=== PATIENT | male | born 2000 | race Caucasian/White ===

== ENCOUNTER 2024-11-25 16:59 | Emergency (ER) | payer OTHER, SELFPAY ==
[2024-11-25 17:15] VITALS: BP 161/100; PULSE 95; RESP 16; TEMP 36.3; O2SAT 99
--- NOTE | 2024-11-25 17:27 | ED.URI ---
HPI - URI/Sore Throat General Chief Complaint: Upper Respiratory Infection Stated Complaint: flu test for work, work note Time Seen by Provider: 11/25/24 17:27 Source: patient Mode of arrival: ambulatory Limitations: no limitations History of Present Illness HPI Narrative: 24-year-old male presents for work note. Patient states that he had the flu and was sick for several days. Had to call into work. States all symptoms have resolved. All Systems reviewed and negative except as noted above. Related Data Home Medications ?Medication ?Instructions ?Recorded ?Confirmed ?Last Taken ?Type bupropion HCl 100 mg tablet 100 mg PO BID 11/25/24 11/25/24 Unknown History buspirone 15 mg tablet 15 mg PO BID 11/25/24 11/25/24 Unknown History fluoxetine 60 mg tablet 60 mg PO DAILY 11/25/24 11/25/24 Unknown History Allergies Allergy/AdvReac Type Severity Reaction Status Date / Time latex Allergy Unknown Unknown Verified 11/25/24 17:06 No Known Drug Allergies Allergy Unknown Unknown Verified 11/25/24 17:06 Common Ragweed Allergy Mild Unknown Uncoded 11/25/24 17:06 Cultivated Oat Pollen Allergy Mild Unknown Uncoded 11/25/24 17:06 Review of Systems Review of Systems: CONSTITUTIONAL: Denies fever, chills, or sweats. EYES: Denies visual changes, redness, or discharge. ENT: Denies rhinorrhea, congestion, sore throat, or otalgia. CARDIOVASCULAR: Denies chest pain, palpitations, or edema. RESPIRATORY: Denies cough or dyspnea. GASTROINTESTINAL: Denies abdominal pain, nausea, vomiting, or diarrhea. GENITOURINARY: Denies dysuria or hematuria. SKIN: Denies rash or itching. MUSCULOSKELETAL: Denies back pain, joint pain, or myalgia. NEUROLOGIC: Denies headache, numbness, or weakness. PSYCHIATRIC: Denies anxiety or depression. All other systems reviewed are negative, except as documented in HPI. PMFSH Comments At time of signature, agree with nursing past medical, surgical, social and family history. There is no relevant family history pertinent to the presenting complaint. Exam Narrative: GENERAL: This is a well-nourished, well-developed patient, in no apparent distress. HEAD: normocephalic, atraumatic. EYES: PERRL. Sclera clear/white. Vision is grossly intact. EARS: External ears normal, auditory canals clear and without drainage, TMs normal without perforation. Hearing grossly intact. NOSE: External nose normal with no obvious nasal discharge, nares without redness, no rhinorrhea. THROAT: Mucous membranes moist, posterior pharynx clear. NECK: Neck supple, non-tender without lymphadenopathy, masses or thyromegaly. CARDIOVASCULAR: Regular rate and rhythm without murmurs, gallops, or rubs. RESPIRATORY: Clear to auscultation. Breath sounds equal bilaterally. No wheezes, rales, or rhonchi. SKIN: warm, Dry, intact with no suspicious lesions or rash, good texture and turgor. NEURO: awake, alert, and oriented to person, place and time. There were no obvious focal neurologic abnormalities. EXTREMITIES: No joint tenderness, effusion, or edema noted. Course Course Level of Care: Express Care Visit Vital Signs Vital signs: Vital Signs Temperature 36.3 C L 11/25/24 17:15 Pulse Rate 95 11/25/24 17:15 Respiratory Rate 16 11/25/24 17:15 Blood Pressure 161/100 H 11/25/24 17:15 Pulse Oximetry 99 11/25/24 17:15 Oxygen Delivery Room Air 11/25/24 17:15 Temperature 36.3 C L 11/25/24 17:15 Pulse Rate 95 11/25/24 17:15 Respiratory Rate 16 11/25/24 17:15 Blood Pressure 161/100 H 11/25/24 17:15 Pulse Oximetry 99 11/25/24 17:15 Oxygen Delivery Room Air 11/25/24 17:15 reviewed MDM - URI/Sore Throat MDM Narrative Medical decision making narrative: patient is well-appearing. Asymptomatic. Blood pressure elevated today. Recommend follow-up primary care physician to recheck reading in 1 week. Please be advised this is a medical document. It is intended for [id number] communication. It is written in medical language and may contain unfamiliar abbreviations or verbiage. Medical documents are intended to carry relevant information, facts as evident, and the clinical opinion of the practitioner at the time of the encounter. This report may have been done utilizing a voice recognition system. Attempts have been made to correct errors. However, there may be uncorrected grammatical, spelling, and recognition errors present. The file time of this note does not necessarily represent the time of service. Discharge Plan Discharge Clinical Impression: Elevated blood pressure reading, Encounter to obtain excuse from work Patient Disposition: Home, Self-Care Condition: Stable Instructions: Hypertension (ED) Additional Instructions: your blood pressure was elevated today. BP 161/100 Follow-up with your primary care physician in 1 week to recheck blood pressure. Patient Language: Greenlandic Prescriptions: No Action bupropion HCl 100 mg tablet 100 mg PO BID buspirone 15 mg tablet 15 mg PO BID fluoxetine 60 mg tablet 60 mg PO DAILY Follow-up/Referrals: Darrell,Otoniel Medellin MD [Primary Care Provider] - Stand Alone Forms: Work/School Release IP Time of Disposition: 17:33
== END 2024-11-25 17:36 | disposition home or self-care (01) ==
PROVIDERS: Emergency Provider Nurse Practitioner Family; PCP Family Medicine
DX: R03.0 Elevated blood-pressure reading, without diagnosis of hypertension (principal); Z02.79 Encounter for issue of other medical certificate; F41.9 Anxiety disorder, unspecified; F32.A Depression, unspecified
CPT/HCPCS: 99202; G0463